=== PATIENT | female | born 2000 | race Hispanic/Latino ===

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

== ENCOUNTER 2022-10-02 22:34 | Emergency (ER) | payer OTHER ==
[~2022-10-02] VITALS: Ht 167.6 cm; Wt 99.8 kg
[2022-10-02 23:13] VITALS: BP 109/63
[2022-10-02 23:27] LABS: BASOPHILS % (AUTO) 0.3 % (0.0-5.0); EOSINOPHILS % (AUTO) 1.6 % (0.0-8.0); HEMATOCRIT 40.4 % (36-48); LYMPHOCYTES % (AUTO) 22.2 % (21.0-51.0); MEAN CORPUSCULAR HEMOGLOBIN 29.3 pg (27.0-33.0); MEAN CORPUSCULAR HGB CONC 33.2 g/dL (32.0-36.0); MEAN CORPUSCULAR VOLUME 88.4 fL (79-99); MONOCYTES % (AUTO) 5.6 % (3.0-13.0); NEUTROPHILS % (AUTO) 69.9 % (40.0-77.0); PLATELET COUNT (AUTO) 272 K/uL (130-400); RED BLOOD CELL COUNT(AUTO) 4.57 MIL/uL (4.00-5.50); RED CELL DISTRIBUTION WIDTH 13.9 % (11.0-15.5); WHITE BLOOD COUNT (AUTO) 16.7 K/uL (4.8-10.8)
[2022-10-02 23:32] LABS: APPEARANCE,URINE CLEAR (CLEAR); BILIRUBIN,URINE NEGATIVE (NEGATIVE); COLOR,URINE LIGHT-YELLOW (YELLOW); GLUCOSE, URINE (UA) NEGATIVE (NEGATIVE); KETONES,URINE 5 mg/dL (NEGATIVE); LEUKOCYTE ESTERASE ,URINE 75 Leu/uL (NEGATIVE); NITRATE,URINE NEGATIVE (NEGATIVE); OCCULT BLOOD,URINE NEGATIVE (NEGATIVE); PROTEIN,URINE 10 mg/dL (NEGATIVE); UROBILINOGEN,URINE 0.2 mg/dL (0.2-1.0)
[2022-10-02 23:38] LABS: BACTERIA,URINE RARE /HPF (None Seen); MUCUS,URINE RARE LPF (None Seen); SQUAMOUS EPITHELIAL CELL,UR RARE /HPF (0-2)
[2022-10-02 23:48] LABS: CREATININE 0.4 mg/dL (0.5-1.5); POTASSIUM 3.9 mmol/L (3.5-5.1)
[2022-10-02 23:53] LABS: ALBUMIN 2.9 g/dL (3.5-5.0); TOTAL PROTEIN, SERUM 6.6 g/dL (6.0-8.3)
[2022-10-03] MEDS ORDERED: CEPH500B PO (00:19)
== END 2022-10-03 00:29 | disposition home or self-care (01) ==
LOC: EDH 22:34
DX: O23.42 Unspecified infection of urinary tract in pregnancy, second trimester (principal); N39.0 Urinary tract infection, site not specified; M25.559 Pain in unspecified hip; Z3A.18 18 weeks gestation of pregnancy
CPT/HCPCS: 36415; 76805; 80053; 81001; 85025; 87088

== ENCOUNTER 2022-12-16 19:32 | Observation (INO) | payer MEDICAID, OTHER ==
[~2022-12-16] VITALS: Ht 180.3 cm; Wt 103.0 kg
[~2022-12-16 19:32] MED LIST: CEPH500B PO
[2022-12-16 20:20] LABS: SARS-CoV-2, RNA, NAAT POSITIVE SARS CoV-2 (NEGATIVE)
[2022-12-16 20:23] LABS: INFLUENZA TYPE A Negative For Type A (NEGATIVE); INFLUENZA TYPE B Negative For Type B (NEGATIVE)
[2022-12-16] MEDS ORDERED: DEXAMETHASONE SOD PHOSPHATE 4 MG/ML 1ML VIAL IV ONE (21:00)
[2022-12-16] MEDS ORDERED: ACETAMINOPHEN 500 MG TABLET PO ONE (21:00)
[2022-12-16] MEDS ORDERED: M.V.I. IV [ADULT] 10 ML, FOLIC ACID 1 MG, THIAMINE HCL 100 MG in 0.9%NACL 1000ML 1,000 ML IV ONE (21:00)
[2022-12-16] MEDS ORDERED: ALBUTEROL 0.083% 2.5 MG/3 ML INH IH ONE (21:00)
[2022-12-16 21:05] VITALS: PULSE 82; RESP 19
[2022-12-16 21:47] VITALS: TEMP 100.6
[2022-12-16] MEDS ORDERED: ALBUHFA IH (21:51)
[2022-12-16 21:57] VITALS: BP 138/74; PULSE 101; RESP 20; O2SAT 98
== END 2022-12-17 00:24 | disposition home or self-care (01) ==
LOC: EDH 19:32 → LDH 22:09
PROVIDERS: ADMIT Obstetrics & Gynecology; ATTEND Obstetrics & Gynecology
DX: O98.513 Other viral diseases complicating pregnancy, third trimester (principal); U07.1 COVID-19; Z3A.28 28 weeks gestation of pregnancy
CPT/HCPCS: 96365; 96375; 99284; 87804 ×2; 87635; 94640; G0378 ×2; C9803; J7030; J3411; J3490; J1100; 96360

== ENCOUNTER 2024-01-25 23:21 | Emergency (ER) | payer SELFPAY ==
[~2024-01-25] VITALS: Ht 175.3 cm; Wt 119.7 kg
[~2024-01-25 23:21] MED LIST changes: +ALBUHFA IH
[2024-01-26 00:35] LABS: CREATININE 0.8 mg/dL (0.5-1.0); POTASSIUM 3.5 mmol/L (3.5-5.1)
[2024-01-26 00:39] LABS: ALBUMIN 3.4 g/dL (3.5-5.0); BILIRUBIN,DIRECT 0.1 mg/dL (0.0-0.3); BILIRUBIN,TOTAL 0.2 mg/dL (0.2-1.0)
[2024-01-26 00:49] LABS: BASOPHILS # (AUTO) 0.05 K/uL (0.00-0.20); BASOPHILS % (AUTO) 0.5 % (0.0-5.0); EOSINOPHILS # (AUTO) 0.35 K/uL (0.00-0.70); EOSINOPHILS % (AUTO) 3.5 % (0.0-8.0); HEMATOCRIT 37.4 % (36-48); IMMATURE GRANULOCYTE ABSOLUTE 0.03 K/uL (0-1); LYMPHOCYTES # (AUTO) 3.5 K/uL (1.0-4.8); LYMPHOCYTES % (AUTO) 35.4 % (21.0-51.0); MEAN CORPUSCULAR HEMOGLOBIN 28.7 pg (27.0-33.0); MEAN CORPUSCULAR HGB CONC 33.7 g/dL (32.0-36.0); MEAN CORPUSCULAR VOLUME 85.2 fL (79-99); MONOCYTES # (AUTO) 0.6 K/uL (0.1-1.0); MONOCYTES % (AUTO) 6.4 % (3.0-13.0); NEUTROPHILS # (AUTO) 5.4 K/uL (1.8-7.7); NEUTROPHILS % (AUTO) 53.9 % (40.0-77.0); PLATELET COUNT (AUTO) 308 K/uL (130-400); RED BLOOD CELL COUNT(AUTO) 4.39 MIL/uL (4.00-5.50); RED CELL DISTRIBUTION WIDTH 12.9 % (11.0-15.5)
[2024-01-26 02:25] VITALS: BP 115/62; PULSE 68; RESP 18; TEMP 98.4; O2SAT 99
[2024-01-26] MEDS ORDERED: FAMO-136 PO (02:38)
[2024-01-26] MEDS ORDERED: ONDA-243 PO (02:38)
[2024-01-26] MEDS ORDERED: KETO10TA2 PO (02:38)
[2024-01-26] MEDS: ondanSETRON 4MG INJ IVP ONE (03:02)
[2024-01-26] MEDS: morPHINE 2 MG SYG IVP ONE (03:03)
[2024-01-26] MEDS: ketOROlac 15MG/ML VIAL (15MG/ML) IV ONE (03:03)
== END 2024-01-26 05:14 | disposition home or self-care (01) ==
LOC: EDH 23:21
DX: R10.11 Right upper quadrant pain (principal); K76.0 Fatty (change of) liver, not elsewhere classified
CPT/HCPCS: 99285; 80076; 80048; 84703; 83690; 85025; 36415; 96374; 76705; 96375; 71045; J2270; J2405; J1885

== ENCOUNTER 2024-08-03 22:39 | Emergency (ER) | payer SELFPAY ==
[~2024-08-03] VITALS: Ht 177.8 cm; Wt 120.2 kg
[~2024-08-03 22:39] MED LIST changes: +FAMO-136 PO; +KETO10TA2 PO; +ONDA-243 PO
[2024-08-03] MEDS: HYDROcodone/APAP 5/325 1 TAB TABLET PO ONE (23:26)
[2024-08-03] MEDS: AMOX/CLAV 875/125MG TAB PO ONE (23:26)
[2024-08-03] MEDS ORDERED: AMOX1TAB16 PO (23:33)
--- NOTE | 2024-08-03 23:35 | ERN ---
ED Note History of Present Illness Stated Complaint: RT EAR PAIN Chief Complaint: Earache Time Seen by MD: 22:41 Time Seen by Midlevel: 22:41 Dictation: The patient is a 4-year-old female history of prediabetes not on any medication who presents the emergency with complaints of right ear pain onset yesterday. Patient reports she had her ear irrigated a week ago by her pcp. Patient reports white drainage. Denies any fevers, cough or sore throat. Allergies: Coded Allergies: No Known Allergies (Unverified Allergy, Unknown, 10/03/18) Home Meds Active Scripts Ketorolac Tromethamine (Ketorolac Tromethamine) 10 Mg Tablet, 1 TAB PO TID for pain for 5 Days, #15 TAB 0 Refills Prov:IBETH ARNOLD 01/26/24 Famotidine (Pepcid) 20 Mg Tablet, 1 TAB PO BID for 5 Days, #10 TAB 0 Refills Prov:IBETH ARNOLD 01/26/24 Ondansetron (Ondansetron Odt) 4 Mg Tab.rapdis, 4 MG PO BID for 7 Days, #14 TAB Prov:IBETH ARNOLD 01/26/24 Albuterol Sulfate (Ventolin Hfa/Proventil Hfa/Proair Hfa) 90 Mcg/Puff Puff, 2 PUFF IH Q4H for WHEEZING, #1 INHALER 0 Refills Prov:ASAD COLBERT Sr., MD 12/16/22 Cephalexin Monohydrate (Keflex) 500 Mg Cap, 500 MG PO QID for 7 Days, #28 CAP Prov:ERIC OBREGON MD 10/03/22 Past Medical History Past Medical History: Diabetes-Type II Surgical History: None Family History: Negative Social History: Negative, Lives with family : 1 RN Note Reviewed/Agreed w/PFSH: Yes Review of System Dictation Constitutional: Negative for fever,chills, and weight loss Eyes: Negative for injury, pain,redness, and discharge ENT: Negative for injury positive for right ear Cardiovascular: Negative for chest pain, palpitations, and edema Respiratory: Negative for shortness of breath, cough, and wheezing, Abdomen/GI: Negative for abdominal pain, nausea, vomiting, diarrhea, and constipation Back: Negative for injury and pain : Negative for injury, bleeding and discharge MS/Extremity: Negative for injury and deformity Skin: Negative for rash, and discoloration Neuro: Negative for headache, weakness, numbness, tingling, and seizure Psych: Negative for suicide ideation, homicidal ideation, and hallucinations Initial Vital Sign VS Vital Signs Date Time Temp Pulse Resp B/P (MAP) Pulse Ox O2 Delivery O2 Flow Rate FiO2 08/03/24 22:40 99.0 96 20 136/89 100 Room Air Physical Exam Dictation Vital Signs reviewed General Appearance: Alert, oriented x 3, no acute distress, well developed, nourished. Head and Face: non-traumatic. Eyes: PERRL, pink conjunctivas, eyelid no trauma, anterior chamber with arcus senilis. Ears: Pinnas intact and no signs of trauma or erythema ear canals clear and no discharge TM no erythema to left ear. Right ear canal erythema, perforated TM Nose: No discharge, no bleeding. Oropharynx: Mouth normal, tongue pink. pharynx clear,no erythema, tonsils no exudates, no abscesses noted, mucous membrane moist Neck: Supple, non-tender, no thyromegaly, no masses, no JVD, no bruits Breast:Deferred Chest:No tenderness, no crepitus, no paradoxical movement, no retractions Lungs:Clear, well-ventilated, symmetric, no rales, no wheezing, no rhonchi, no stridor, good breath sounds bilaterally Heart: Regular rate, regular rhythm, no murmur, no gallops Vascular: no peripheral edema, Abdomen: Soft, positive bowel sounds, nondistended, no guarding, nontender, no rebound, no masses no hepatomegaly, no splenomegaly, no Turner's sign, no hernias. Rectal: Deferred Genital: Deferred Neurological: Normal speech, motor function intact, sensory function intact Musculoskeletal: Neck nontender, full range of motion, back nontender, full range of motion, Extremities: nontender, full range of motion Skin: Color pink, dry, no turgor, no rash, no lacerations, no abrasions, no contusions. Lymphatic: Deferred Results (Laboratory/Radiology) Labs Reviewed?: Yes ED Course ED Course Orders Procedure Category Date Status Time Hydrocodone/Apap PHA 08/03/24 In Process 5/325 ([place] 5/325mg) 23:30 Amox/Clav 875/125mg PHA 08/03/24 In Process Tab (Augmentin 875-1 23:30 Current Medications Medications (Trade) Dose Ordered Sig/José Manuel Route PRN Reason Start Time Stop Time Status Last Admin Dose Admin Acetaminophen/ Hydrocodone Bitart (NORco 5/325MG) 1 tab ONCE ONCE PO 08/03/24 23:30 08/03/24 23:31 Amoxicillin/ Clavulanate Potassium (Augmentin 875-125 Tablet) 1 each ONCE ONCE PO 08/03/24 23:30 08/03/24 23:31 Vital Signs Date Time Temp Pulse Resp B/P (MAP) Pulse Ox O2 Delivery O2 Flow Rate FiO2 08/03/24 22:40 99.0 96 20 136/89 100 Room Air Medical Decision Making MDM The patient is a 4-year-old female history of prediabetes not on any medication who presents the emergency with complaints of right ear pain onset yesterday. Patient reports she had her ear irrigated a week ago by her pcp. Patient reports white drainage. Denies any fevers, cough or sore throat. Right ear with perforated tympanic membrane and erythema.No drainage. patient will be started on antibiotic. Instructed patient that if she keeps having problems with ear infections she needs to see a ENT specialist. Patient in no acute distress, non toxic appearance, stable vital sings. will be discharge to follow up with PCP Differential diagnosis: Otitis media, otitis externa, foreign object Need for hospitalization: Patient does not meet criteria for hospitalization. There are no social concerns with this patient. DX & DISP Disposition: Discharge Departure Impression: Primary Impression: Right otitis media with spontaneous rupture of eardrum Condition: Stable Scripts Amoxicillin/Potassium Clav (Amox Tr-K Clv 875-125 mg Tab) 875 Mg-125 Mg Tablet 1 EACH PO BID for 10 Days, #20 TAB 0 Refills Prov: CHRIST ENAMORADO ADVICE CLERK 08/03/24 Additional Instructions: Please follow up with your PCP in 1-2 days. Take medications as prescribed. Take all your antibiotics until finished. You will need a referral from your pcp for ENT.No swimming, avoid getting water in the affected ear when bthing or showering, FOLLOW-UP WITH PRIMARY CARE PROVIDER IN 1 TO 2 DAYS. TAKE MEDICATIONS DIRECTED HERE IN THE EMERGENCY ROOM. OKAY TO CONTINUE HOME MEDICATIONS UNLESS OTHERWISE DISCUSSED DURING YOUR VISIT IN THE EMERGENCY ROOM TODAY. RETURN TO YOUR NEAREST EMERGENCY ROOM IF SYMPTOMS WORSEN OR IF THERE IS NO IMPROVEMENT. CALL 911 IF YOU NEED IMMEDIATE ASSISTANCE. TAKE TYLENOL OR MOTRIN OVER-THE- COUNTER NEEDED AND IF NO CONTRAINDICATIONS ARE PRESENT. INCREASE ORAL HYDRATION. A WOUND CULTURE OR URINE CULTURE WAS ORDERED HERE IN THE EMERGENCY ROOM DEPARTMENT PLEASE FOLLOW-UP WITH PRIMARY CARE PROVIDER AND ADVISE THEM TO GET REPEAT PORTS FROM OUR FACILITY. IF YOU HAD ANY LORELEI WRAP/SPLINTS THAT WERE APPLIED HERE, PLEASE DO NOT REMOVE THEM UNTIL YOU SEE YOUR PRIMARY CARE OR SPECIALTY. Referrals: SELF,REFERRAL (PCP) Time of Disposition: 23:30 I have reviewed the case, and I agree with, Diagnosis and Plan CHRIST ENAMORADO ADVICE CLERK Aug 03, 2024 23:35
--- NOTE | 2024-08-04 00:23 | NUR ---
PT REPORTS THAT SHE IS SURE SHE IS NOT , HAS NOT HAD SEXUAL INTERCOURSE. STATES SHE IS CONFIDENT THAT THERE IS NO NEED FOR HCG FOR MEDICATION ADMINISTRATION.
[2024-08-04] MEDS: ketOROlac 60 MG VIAL (30MG/ML) IM ONE (00:32)
[2024-08-04 00:58] VITALS: BP 129/79; PULSE 81; RESP 18; TEMP 98.7; O2SAT 100
== END 2024-08-04 00:59 | disposition home or self-care (01) ==
LOC: EDH 22:39
DX: H66.91 Otitis media, unspecified, right ear (principal); E11.9 Type 2 diabetes mellitus without complications; Z79.899 Other long term (current) drug therapy
CPT/HCPCS: 99283; 96372; J1885